=== PATIENT | female | born 1985 ===

== ENCOUNTER 2018-02-24 11:56 | Emergency (ER) | payer OTHER ==
[~2018-02-24] VITALS: Ht 160 cm; Wt 66.7 kg
[2018-02-24] MEDS ORDERED: PRENATAL + DHA1 EAC1 PO (12:19)
[2018-02-24] MEDS ORDERED: ZOFRAN4 MG PO (12:19)
== END 2018-02-24 18:25 | disposition home or self-care (01) ==
LOC: ER 11:56
DX: O26.891 Other specified pregnancy related conditions, first trimester (principal); K29.70 Gastritis, unspecified, without bleeding; Z34.01 Encounter for supervision of normal first pregnancy, first trimester

== ENCOUNTER 2018-07-26 13:35 | Inpatient (IN) | payer OTHER ==
[~2018-07-26] VITALS: Ht 160 cm; Wt 62.6 kg
[~2018-07-26 13:35] MED LIST: PRENATAL + DHA1 EAC1 PO; ZOFRAN4 MG PO
[2018-09-06] MEDS ORDERED: IRON325 MG PO (07:08)
== END 2018-09-08 12:32 | disposition home or self-care (01) | DRG 798 ==
LOC: OB/GYN 08-11 12:00 → LDR 09-06 06:10 → OB/GYN 09-06 12:00
PROVIDERS: ADMIT Obstetrics & Gynecology
PROC: 10E0XZZ Delivery of Products of Conception, External Approach (ICD-10-PCS; principal; 2018-09-06)
PROC: 0KQM0ZZ Repair Perineum Muscle, Open Approach (ICD-10-PCS; 2018-09-06)
PROC: 4A1HXCZ Monitoring of Products of Conception, Cardiac Rate, External Approach (ICD-10-PCS; 2018-09-06)
PROC: 0UL70ZZ Occlusion of Bilateral Fallopian Tubes, Open Approach (ICD-10-PCS; 2018-09-08)
DX: O70.1 Second degree perineal laceration during delivery (principal); Z37.0 Single live birth; Z3A.40 40 weeks gestation of pregnancy; Z30.2 Encounter for sterilization